=== PATIENT | female | born 2000 | race Caucasian/White ===

== ENCOUNTER 2020-10-16 19:15 | Emergency (ER) | payer OTHER ==
[~2020-10-16] VITALS: Ht 162.6 cm; Wt 65.8 kg
[2020-10-16] MEDS ORDERED: LOESTRIN FE 1-1 EACH PO (19:18)
[2020-10-16 22:25] VITALS: BP 166/88
== END 2020-10-16 22:27 | disposition home or self-care (01) ==
LOC: ER 19:15
DX: R05 Cough (principal); Z20.828 Contact with and (suspected) exposure to other viral communicable diseases